=== PATIENT | male | born 1935 | race Caucasian/White ===

== ENCOUNTER 2017-01-15 11:57 | Day surgery (SDC) | END 2017-01-15 15:00 | disposition home or self-care (01) | DX: K92.1 Melena (principal); K63.5 Polyp of colon; I10 Essential (primary) hypertension; E78.00 Pure hypercholesterolemia, unspecified; J45.909 Unspecified asthma, uncomplicated | CPT/HCPCS: 45380; 88305; J2250; J3010; Z7610 ==